=== PATIENT | male | born 1945 | race Caucasian/White ===

== ENCOUNTER 2019-07-30 12:06 | Emergency (ER) | payer OTHER ==
[~2019-07-30] VITALS: Ht 182.9 cm; Wt 90.9 kg
[2019-07-30 12:09] VITALS: Ht 182.9 cm; Wt 90.9 kg
[2019-07-30 13:34] LABS: BASOPHILS 0.2 % (0-2); EOSINOPHILS 3.4 % (0-7); HEMATOCRIT 42.8 % (42.0-54.0); HEMOGLOBIN 14.7 g/dL (13.5-17.5); IMMATURE GRANULOCYTES 0.2 % (0-5); LYMPHOCYTES 41.5 % (15-50); MCH 31.2 pg (26.0-34.0); MCHC 34.3 g/dL (31.0-37.0); MCV 90.9 fL (80.0-100.0); MEAN PLATELET VOLUME 11.4 fL (7.4-10.4); MONOCYTES 6.6 % (2-11); NEUTROPHILS 48.1 % (40-80); PLATELET COUNT 146 10x3/uL (130-400); RBC 4.71 10x6/uL (4.20-6.10); RDW 13.8 % (11.5-14.5); WBC 6.2 10x3/uL (4.8-10.8)
[2019-07-30 13:40] LABS: CALC OSMOLALITY 293 mosm/kg (275-300); CALCIUM 10.5 mg/dL (8.5-10.1); CARBON DIOXIDE 32.2 mmol/L (21.0-32.0); CHLORIDE - SERUM 101 mmol/L (98-107); CREATININE - SERUM 1.5 mg/dL (0.6-1.3); GLUCOSE 353 mg/dL (74-106); POTASSIUM - SERUM 4.1 mmol/L (3.5-5.1); SODIUM 139 mmol/L (136-145); UREA NITROGEN 19 mg/dL (7-18); eGFR NON AFRICAN AMERICAN 48 mL/min (90-120)
[2019-07-30 13:49] LABS: KETONE - SERUM NEGATIVE (NEGATIVE)
[2019-07-30 13:57] LABS: ALBUMIN 3.5 g/dL (3.4-5.0); ALKALINE PHOSPHATASE 88 U/L (46-116); ALT (SGPT) 68 U/L (10-68); CKMB 1.6 U/L (0.0-3.6); CREATINE KINASE 92 UL (21-232); MAGNESIUM - SERUM 1.8 mg/dL (1.8-2.4); PRO BNP 576 pg/mL (0-450); PROTEIN - SERUM 7.5 g/dL (6.4-8.2)
[2019-07-30] MEDS ORDERED: VITAMIN B-121000 MCG PO (15:02)
[2019-07-30] MEDS ORDERED: VITAMIN D250000 UNIT PO (15:03)
[2019-07-30] MEDS ORDERED: FERROUS SULFAT325 MG PO (15:03)
[2019-07-30] MEDS ORDERED: MULTI-DAY VITAM1 TAB PO (15:03)
[2019-07-30] MEDS ORDERED: FOLIC ACID1 MG PO (15:03)
[2019-07-30] MEDS ORDERED: TOPROL XL25 MG PO (15:04)
[2019-07-30] MEDS ORDERED: LISINOPRIL20 MG PO (15:04)
[2019-07-30] MEDS ORDERED: BAYER CHEWABLE81 MG PO (15:05)
[2019-07-30] MEDS ORDERED: ALOGLIPTIN PO (15:05)
[2019-07-30 17:36] VITALS: BP 139/60
== END 2019-07-30 17:37 | disposition home or self-care (01) ==
LOC: D.ER 12:06
PROVIDERS: Emergency Medicine
DX: I10 Essential (primary) hypertension (principal); E11.65 Type 2 diabetes mellitus with hyperglycemia; G30.9 Alzheimer's disease, unspecified; F02.80 Dementia in other diseases classified elsewhere, unspecified severity, without behavioral disturbance, psychotic disturbance, mood disturbance, and anxiety; N28.9 Disorder of kidney and ureter, unspecified; I65.29 Occlusion and stenosis of unspecified carotid artery